=== PATIENT | male | born 1970 | race Caucasian/White ===

== ENCOUNTER 2018-02-26 09:48 | Emergency (ER) | payer OTHER ==
[~2018-02-26] VITALS: Ht 160 cm; Wt 68.0 kg
[~2018-02-26 09:48] MED LIST: LOTRISONE 0.05%1 CRE T; LYRICA50 MG PO; NAPROSYN500 MG PO; NKHM; NORCO 325 MG-51 TAB PO; ROBAXIN750 MG PO; VOLTAREN50 M1 PO; ZOVIRAX800 MG PO
[2018-02-26 10:21] LABS: BILIRUBIN NEGATIVE (NEGATIVE); BLOOD TRACE-LYSED (NEGATIVE); CLARITY SL CLOUDY (CLEAR); COLOR YELLOW (YELLOW); GLUCOSE NEGATIVE (NEGATIVE); KETONE 1+ (NEGATIVE); LEUKO ESTERASE 1+ (NEGATIVE); NITRITE NEGATIVE (NEGATIVE); SPECIFIC GRAVITY 1.025 (1.005-1.030); UROBILINOGEN 0.2 E.U./dl (0.2-1.0)
[2018-02-26 10:32] LABS: BACTERIA TRACE
[2018-02-26] MEDS ORDERED: CIPRO500 MG PO (11:55)
[2018-02-26] MEDS ORDERED: NORCO 10-325 T1 EACH PO (12:08)
== END 2018-02-26 12:24 | disposition home or self-care (01) ==
LOC: ED 09:48
PROVIDERS: Emergency Medicine
DX: N45.2 Orchitis (principal); N50.89 Other specified disorders of the male genital organs; Z88.6 Allergy status to analgesic agent

== ENCOUNTER 2018-03-22 01:35 | Emergency (ER) | payer OTHER ==
[~2018-03-22] VITALS: Ht 165.1 cm; Wt 63.5 kg
[~2018-03-22 01:35] MED LIST changes: +CIPRO500 MG PO; +NORCO 10-325 T1 EACH PO
[2018-03-22] MEDS ORDERED: 'CIPRO500 M1 PO (01:39)
[2018-03-22 02:39] LABS: BASO # 0.1 10*3/uL (0.0-0.1); EOS # 0.2 10*3/uL (0.0-0.4); EOS % 2.1 % (1.0-4.0); HEMATOCRIT 44.1 % (42.0-52.0); HEMOGLOBIN 14.1 g/dl (14.0-18.0); LYMPH # 2.4 10*3/uL (1.3-4.4); LYMPH % 34.6 % (27.0-41.0); MEAN CELL VOLUME 98.2 fl (80.0-94.0); MEAN CORPUSCULAR HGB 31.4 pg (27.0-31.0); MEAN PLATELET VOLUME 10.6 fl (9.6-12.3); MONO # 0.4 10*3/uL (0.1-1.0); MONO % 5.6 % (3.0-9.0); NEUT # 3.9 10*3/uL (2.3-7.9); NEUT % 56.4 % (47.0-73.0); PLATELET COUNT AUTOMATED 281 10*3/uL (130-400); RED BLOOD COUNT 4.49 10*6/uL (4.50-5.90); RED CELL DISTRI WIDTH 13.4 % (0-14.5)
[2018-03-22 03:11] LABS: ALBUMIN 3.7 gm/dl (3.1-4.5); ALKALINE PHOSPHATASE 74 U/L (45-117); BUN 5 mg/dl (7-24); CHLORIDE 107 mmol/L (98-107); CREATININE 0.82 mg/dL (0.70-1.30); SGOT/AST 23 IU/L (3-35); SGPT/ALT 16 U/L (12-78); SODIUM 141 mmol/L (136-145); TOTAL PROTEIN 7.6 gm/dL (6.4-8.2)
[2018-03-22 03:42] LABS: BILIRUBIN NEGATIVE (NEGATIVE); BLOOD NEGATIVE (NEGATIVE); CLARITY CLEAR (CLEAR); COLOR YELLOW (YELLOW); GLUCOSE NEGATIVE (NEGATIVE); KETONE NEGATIVE (NEGATIVE); LEUKO ESTERASE NEGATIVE (NEGATIVE); NITRITE NEGATIVE (NEGATIVE); SPECIFIC GRAVITY 1.025 (1.005-1.030); UROBILINOGEN 0.2 E.U./dl (0.2-1.0)
[2018-03-22 03:50] LABS: EPITHELIAL CELLS 0-5
[2018-03-22] MEDS ORDERED: NORCO 5-325 TA1 EACH PO (05:14)
[2018-03-22] MEDS ORDERED: CIPRO500 MG PO (05:14)
== END 2018-03-22 05:07 | disposition home or self-care (01) ==
LOC: ED 01:35
PROVIDERS: Emergency Medicine Emergency Medical Services
DX: N45.2 Orchitis (principal); Z79.899 Other long term (current) drug therapy; Z88.6 Allergy status to analgesic agent

== ENCOUNTER → 2018-05-07 | Outpatient (CLI) | payer OTHER ==
[~2018-05-07] MED LIST changes: +'CIPRO500 M1 PO; +NORCO 5-325 TA1 EACH PO
[2018-05-07 08:52] LABS: ALBUMIN 3.7 gm/dl (3.1-4.5); ALKALINE PHOSPHATASE 72 U/L (45-117); BUN 16 mg/dl (7-24); CHLORIDE 106 mmol/L (98-107); CREATININE 1.09 mg/dL (0.70-1.30); LDH 112 U/L (87-241); PHOSPHOROUS 4.6 mg/dL (2.5-4.9); POTASSIUM 4.2 mmol/L (3.5-5.1); SGOT/AST 20 IU/L (3-35); SGPT/ALT 25 U/L (12-78); SODIUM 142 mmol/L (136-145)
[2018-05-07 09:20] LABS: BASO # 0.1 10*3/uL (0.0-0.1); BASO % 0.7 % (0.0-1.0); EOS # 0.3 10*3/uL (0.0-0.4); EOS % 2.3 % (1.0-4.0); HEMATOCRIT 43.6 % (42.0-52.0); HEMOGLOBIN 13.7 g/dl (14.0-18.0); LYMPH # 2.7 10*3/uL (1.3-4.4); LYMPH % 24.8 % (27.0-41.0); MEAN CELL VOLUME 98.9 fl (80.0-94.0); MEAN CORPUSCULAR HGB 31.1 pg (27.0-31.0); MEAN CORPUSCULAR HGB CONC 31.4 g/dl (33.0-37.0); MEAN PLATELET VOLUME 10.9 fl (9.6-12.3); MONO # 0.7 10*3/uL (0.1-1.0); MONO % 6.6 % (3.0-9.0); NEUT % 65.2 % (47.0-73.0); PLATELET COUNT AUTOMATED 244 10*3/uL (130-400); RED BLOOD COUNT 4.41 10*6/uL (4.50-5.90); RED CELL DISTRI WIDTH 13.4 % (0-14.5); WHITE BLOOD COUNT 10.7 10*3/uL (4.8-10.8)
== END ==
LOC: LAB 08:04
PROVIDERS: Internal Medicine Hematology & Oncology
DX: C62.12 Malignant neoplasm of descended left testis (principal); R97.8 Other abnormal tumor markers

== ENCOUNTER → 2018-05-08 | Outpatient (CLI) | payer OTHER | END | disposition home or self-care (01) | LOC: CT 05-02 14:00 → MRI 01:55 | DX: C62.12 Malignant neoplasm of descended left testis (principal); R97.8 Other abnormal tumor markers ==

== ENCOUNTER → 2018-08-08 | Outpatient (CLI) | payer OTHER | END | disposition home or self-care (01) | LOC: CT 08-01 15:00 | DX: R10.32 Left lower quadrant pain (principal); R11.2 Nausea with vomiting, unspecified; M51.46 Schmorl's nodes, lumbar region; Z85.47 Personal history of malignant neoplasm of testis ==

== ENCOUNTER → 2018-08-12 | Outpatient (CLI) | payer OTHER ==
[2018-08-12 10:10] LABS: BASO # 0.1 10*3/uL (0.0-0.1); BASO % 1.1 % (0.0-1.0); EOS % 0.2 % (1.0-4.0); HEMATOCRIT 35.4 % (42.0-52.0); HEMOGLOBIN 11.7 g/dl (14.0-18.0); LYMPH # 1.7 10*3/uL (1.3-4.4); LYMPH % 36.3 % (27.0-41.0); MEAN CELL VOLUME 99.4 fl (80.0-94.0); MEAN CORPUSCULAR HGB 32.9 pg (27.0-31.0); MEAN CORPUSCULAR HGB CONC 33.1 g/dl (33.0-37.0); MONO # 0.4 10*3/uL (0.1-1.0); MONO % 9.2 % (3.0-9.0); NEUT # 2.4 10*3/uL (2.3-7.9); NEUT % 53.2 % (47.0-73.0); PLATELET COUNT AUTOMATED 191 10*3/uL (130-400); RED BLOOD COUNT 3.56 10*6/uL (4.50-5.90); RED CELL DISTRI WIDTH 16.2 % (0-14.5); WHITE BLOOD COUNT 4.6 10*3/uL (4.8-10.8)
[2018-08-12 10:12] LABS: ALBUMIN 3.4 gm/dl (3.1-4.5); ALKALINE PHOSPHATASE 65 U/L (45-117); BUN 12 mg/dl (7-24); CHLORIDE 107 mmol/L (98-107); LDH 137 U/L (87-241); POTASSIUM 4.1 mmol/L (3.5-5.1); SGOT/AST 9 IU/L (3-35); SGPT/ALT 17 U/L (12-78); SODIUM 136 mmol/L (136-145); TOTAL PROTEIN 6.8 gm/dL (6.4-8.2); URIC ACID 4.9 mg/dL (3.5-7.2)
== END | disposition home or self-care (01) ==
LOC: LAB 09:29
DX: C62.12 Malignant neoplasm of descended left testis (principal); R97.1 Elevated cancer antigen 125 [CA 125]

== ENCOUNTER → 2018-08-21 | Outpatient (CLI) | payer OTHER ==
[2018-08-21 15:53] LABS: BASO % 0.4 % (0.0-1.0); EOS % 0.4 % (1.0-4.0); HEMATOCRIT 36.1 % (42.0-52.0); HEMOGLOBIN 12.2 g/dl (14.0-18.0); LYMPH # 2.1 10*3/uL (1.3-4.4); MEAN CELL VOLUME 100.6 fl (80.0-94.0); MEAN CORPUSCULAR HGB CONC 33.8 g/dl (33.0-37.0); MEAN PLATELET VOLUME 9.3 fl (9.6-12.3); MONO # 0.6 10*3/uL (0.1-1.0); MONO % 11.1 % (3.0-9.0); NEUT # 2.3 10*3/uL (2.3-7.9); NEUT % 46.3 % (47.0-73.0); PLATELET COUNT AUTOMATED 239 10*3/uL (130-400); RED BLOOD COUNT 3.59 10*6/uL (4.50-5.90); RED CELL DISTRI WIDTH 17.3 % (0-14.5); WHITE BLOOD COUNT 5.1 10*3/uL (4.8-10.8)
[2018-08-21 16:17] LABS: ALBUMIN 3.7 gm/dl (3.1-4.5); ALKALINE PHOSPHATASE 73 U/L (45-117); BUN 10 mg/dl (7-24); CREATININE 1.02 mg/dL (0.70-1.30); LDH 156 U/L (87-241); PHOSPHOROUS 3.7 mg/dL (2.5-4.9); SGOT/AST 14 IU/L (3-35); SGPT/ALT 20 U/L (12-78); URIC ACID 5.6 mg/dL (3.5-7.2)
[2018-08-21 16:24] LABS: CHLORIDE 105 mmol/L (98-107); POTASSIUM 4.2 mmol/L (3.5-5.1); SODIUM 138 mmol/L (136-145)
== END | disposition home or self-care (01) ==
LOC: LAB 15:31
PROVIDERS: Internal Medicine Hematology & Oncology
DX: C62.12 Malignant neoplasm of descended left testis (principal); R97.1 Elevated cancer antigen 125 [CA 125]

== ENCOUNTER → 2018-11-20 | Outpatient (CLI) | payer OTHER | END | disposition home or self-care (01) | LOC: LAB 12:40 → RAD 12:40 | DX: Z51.81 Encounter for therapeutic drug level monitoring (principal); C62.12 Malignant neoplasm of descended left testis ==

== ENCOUNTER → 2018-12-17 | Outpatient (CLI) | payer OTHER ==
[2018-12-17 14:32] LABS: BASO # 0.1 10*3/uL (0.0-0.1); BASO % 0.8 % (0.0-1.0); EOS # 0.1 10*3/uL (0.0-0.4); EOS % 1.8 % (1.0-4.0); HEMATOCRIT 44.2 % (42.0-52.0); HEMOGLOBIN 13.8 g/dl (14.0-18.0); LYMPH # 1.8 10*3/uL (1.3-4.4); LYMPH % 28.1 % (27.0-41.0); MEAN CORPUSCULAR HGB 31.2 pg (27.0-31.0); MEAN CORPUSCULAR HGB CONC 31.2 g/dl (33.0-37.0); MEAN PLATELET VOLUME 10.5 fl (9.6-12.3); MONO # 0.3 10*3/uL (0.1-1.0); MONO % 5.1 % (3.0-9.0); NEUT % 63.9 % (47.0-73.0); PLATELET COUNT AUTOMATED 236 10*3/uL (130-400); RED BLOOD COUNT 4.42 10*6/uL (4.50-5.90); RED CELL DISTRI WIDTH 13.4 % (0-14.5); WHITE BLOOD COUNT 6.3 10*3/uL (4.8-10.8)
[2018-12-17 15:01] LABS: ALBUMIN 3.3 gm/dl (3.1-4.5); ALKALINE PHOSPHATASE 82 U/L (45-117); BUN 13 mg/dl (7-24); CHLORIDE 106 mmol/L (98-107); CREATININE 1.02 mg/dL (0.70-1.30); LDH 111 U/L (87-241); POTASSIUM 4.2 mmol/L (3.5-5.1); SGOT/AST 13 IU/L (3-35); SGPT/ALT 23 U/L (12-78); SODIUM 139 mmol/L (136-145); TOTAL PROTEIN 7.2 gm/dL (6.4-8.2)
[2018-12-17 15:12] LABS: BETA-HCG, TUMOR MARKER < 1.0 mIU/mL (<1)
== END | disposition home or self-care (01) ==
LOC: LAB 13:55
PROVIDERS: Urology
DX: C62.90 Malignant neoplasm of unspecified testis, unspecified whether descended or undescended (principal); R31.9 Hematuria, unspecified

== ENCOUNTER → 2019-07-14 | Outpatient (CLI) | payer OTHER ==
--- NOTE | ~2019-07-14 | EKG ---
[place], [place] ELECTROCARDIOGRAM REPORT NAME: DIMAS BACA UNIT #: [id number] ROOM: DOCTOR: EPIPHANY DRAFT REPORT BIRTHDATE: [birth year] [facility] Test Date: 2019-07-14 Test Time: 14:34:49 Pat Name: DIMAS BACA Department: Room: Gender: Development Lead: RESP : 1970 Requested By: MINH HUTCHINS Order Number: [id number] Reading MD: Griselda Marquez MD Measurements Intervals Sullivan Rate: 63 P: 29 ID: [id number] QRS: 56 QRSD: 81 T: 52 QT: 423 QTc: 434 Interpretive Statements Sinus rhythm Electronically Signed On 07-14-2019 14:47:51 PDT by Griselda Marquez MD CM:EKGRPT:ELECTROCARDIOGRAM REPORT [id number] MINH HOBBS DRAFT REPORT MINH HUTCHINS
[2019-07-14 14:44] LABS: HEMATOCRIT 46.2 % (42.0-52.0); HEMOGLOBIN 14.9 g/dl (14.0-18.0); MEAN CELL VOLUME 100.9 fl (80.0-94.0); MEAN CORPUSCULAR HGB 32.5 pg (27.0-31.0); MEAN CORPUSCULAR HGB CONC 32.3 g/dl (33.0-37.0); MEAN PLATELET VOLUME 10.4 fl (9.6-12.3); RED BLOOD COUNT 4.58 10*6/uL (4.50-5.90); RED CELL DISTRI WIDTH 13.8 % (0-14.5); WHITE BLOOD COUNT 7.8 10*3/uL (4.8-10.8)
[2019-07-14 15:18] LABS: CHLORIDE 106 mmol/L (98-107); POTASSIUM 4.6 mmol/L (3.5-5.1); SODIUM 140 mmol/L (136-145)
[2019-07-14 15:35] LABS: ALBUMIN 3.9 gm/dl (3.1-4.5); ALKALINE PHOSPHATASE 73 U/L (45-117); BUN 11 mg/dl (7-24); CHOLESTEROL 169 mg/dL (<200); CREATININE 0.87 mg/dL (0.70-1.30); HDL CHOLESTEROL 86 mg/dl (40-60); LDL CHOLESTEROL 74 mg/dL (9-159); SGOT/AST 15 IU/L (3-35); SGPT/ALT 21 U/L (12-78); TOTAL PROTEIN 7.4 gm/dL (6.4-8.2); TRIGLYCERIDES 45 mg/dl (<150); VLDL CHOLESTEROL 9 mg/dL (6-40)
== END | disposition home or self-care (01) ==
LOC: LAB 14:15
PROVIDERS: Registered Nurse Flight
DX: Z13.220 Encounter for screening for lipoid disorders (principal); I10 Essential (primary) hypertension; R07.9 Chest pain, unspecified; F41.9 Anxiety disorder, unspecified

== ENCOUNTER → 2019-08-06 | Outpatient (CLI) | payer OTHER ==
[~2019-08-06] MED LIST changes: +HYDROCHLOROTH12.5 M2 PO; +PAROXETINE HCL10 MG PO; +PROPRANOLOL HYD20 MG PO; +ZESTRIL10 MG PO
== END | disposition home or self-care (01) ==
LOC: US 11:00
DX: R39.11 Hesitancy of micturition (principal); J44.9 Chronic obstructive pulmonary disease, unspecified; R77.2 Abnormality of alphafetoprotein

== ENCOUNTER → 2019-08-07 | Outpatient (CLI) | payer OTHER ==
--- NOTE | 2019-08-07 10:55 | NUR ---
INFORMED CONSENT OBTAINED FOR A CARDIOLITE STRESS TEST WITH DR. MULLER. RESTING EKG NSR WITH A HT RT OF 68, AND BP OF 132/78 IN SUPINE POSITION. AND A HT RT OF 81 AND BP OF 110/78 IN THE STANDING POSITION. PT COMPLETED 8:00 MINUTES OF A PEACE PROTOCOL WITH COMPLETION OF 2 MINUTES INTO STAGE III AT 3.4 MPH AND 14% GRADE. REACHED A PEAK HT RT OF 158 WHICH IS 91% OF PREDICTED MAX WITH A PEAK BP OF 138/80. TEST TERMINATED DUE TO FATIGUE. DENIES CHEST PAIN AT THE START OF TESTING. HOWEVER VOICED CHEST PRESSURE 8/10 AT TIME OF ASSESSMENT. HAS AN AVERAGE ECERCISE TOLERANCE. LAST RECOVERY HT RT OF 114, WITH A BP OF 110/80. TAKEN TO NUCLEAR IMAGING IN STABLE CONDITION.
== END | disposition home or self-care (01) ==
LOC: CARD 01:41
DX: I10 Essential (primary) hypertension (principal); F41.9 Anxiety disorder, unspecified; I20.0 Unstable angina; R53.83 Other fatigue; R06.09 Other forms of dyspnea; Z82.49 Family history of ischemic heart disease and other diseases of the circulatory system; Z72.0 Tobacco use

== ENCOUNTER → 2020-09-24 | Outpatient (CLI) | payer OTHER | END | disposition home or self-care (01) | LOC: COVID19 12:59 | PROVIDERS: ATTEND Internal Medicine | DX: Z20.828 Contact with and (suspected) exposure to other viral communicable diseases (principal); Z95.828 Presence of other vascular implants and grafts ==

== ENCOUNTER → 2021-02-21 | Outpatient (CLI) | payer OTHER | END | disposition home or self-care (01) | LOC: US 13:46 | PROVIDERS: ATTEND Urology | DX: C62.90 Malignant neoplasm of unspecified testis, unspecified whether descended or undescended (principal); Z90.79 Acquired absence of other genital organ(s) ==

== ENCOUNTER 2021-04-25 13:57 | Inpatient (IN) | payer OTHER ==
[~2021-04-25] VITALS: Ht 177.8 cm; Wt 77.1 kg
[2021-04-25 14:07] VITALS: BP 117/56
[2021-04-25 15:22] LABS: HEMATOCRIT 42.4 % (42.0-52.0); MEAN CELL VOLUME 90.2 fl (80.0-94.0); MEAN CORPUSCULAR HGB 31.7 pg (27.0-31.0); MEAN CORPUSCULAR HGB CONC 35.1 g/dl (33.0-37.0); MEAN PLATELET VOLUME 10.6 fl (9.6-12.3); PLATELET COUNT AUTOMATED 116 10*3/uL (130-400); RED CELL DISTRI WIDTH 12.8 % (0-14.5); WHITE BLOOD COUNT 3.8 10*3/uL (4.8-10.8)
[2021-04-25 15:27] LABS: BILIRUBIN 1+ (Negative); BLOOD Negative (Negative); CLARITY Clear (Clear); COLOR Dark Yellow (Yellow); GLUCOSE Negative (Negative); KETONE 3+ (Negative); LEUKO ESTERASE Negative (Negative); NITRITE Negative (Negative); SPECIFIC GRAVITY 1.025 (1.001-1.030)
[2021-04-25 15:41] LABS: ALBUMIN 3.5 gm/dl (3.1-4.5); ALKALINE PHOSPHATASE 76 U/L (45-117); BUN 10 mg/dl (7-24); CHLORIDE 89 mmol/L (98-107); CREATININE 0.75 mg/dL (0.70-1.30); LIPASE 133 U/L (73-393); POTASSIUM 2.8 mmol/L (3.5-5.1); SGOT/AST 59 IU/L (3-35); SODIUM 124 mmol/L (136-145); TOTAL PROTEIN 7.5 gm/dL (6.4-8.2)
[2021-04-25 15:45] LABS: SGPT/ALT 60 U/L (12-78)
[2021-04-25 15:49] LABS: ATYPICAL LYMPHS 4 % (0-0); PLATELET SUFFICIENCY LOW (NORMAL); TOTAL CELLS COUNTED 100 #CELLS
[2021-04-25 15:50] LABS: VACUOLATION OF NEUTROPHILS MODERATE
[2021-04-25 15:53] LABS: BACTERIA 1+; EPITHELIAL CELLS 0-2
[2021-04-25 15:54] LABS: MUCOUS 2+
[2021-04-25 16:29] VITALS: BP 109/64
[2021-04-25 17:43] VITALS: BP 105/63
[2021-04-25 19:02] VITALS: BP 118/69
[2021-04-25] MEDS ORDERED: METOPROLOL SUCC25 M2 PO (19:50)
[2021-04-25] MEDS ORDERED: OMEPRAZOLE40 MG PO (19:52)
[2021-04-25 23:14] VITALS: BP 107/72
[2021-04-26 04:00] VITALS: BP 108/62
[2021-04-26 04:07] VITALS: BP 108/62
[2021-04-26] MEDS ORDERED: ASPIRIN ADULT L81 M1 PO (04:19)
[2021-04-26] MEDS ORDERED: ISOSORBIDE DINI30 MG PO (04:20)
[2021-04-26 05:09] LABS: ALBUMIN 2.8 gm/dl (3.1-4.5); ALKALINE PHOSPHATASE 69 U/L (45-117); BUN 10 mg/dl (7-24); CHLORIDE 99 mmol/L (98-107); CHOLESTEROL 103 mg/dL (<200); CREATININE 0.67 mg/dL (0.70-1.30); FREE T4 1.18 ng/dl (0.76-1.46); LDL CHOLESTEROL 51 mg/dL (9-159); POTASSIUM 3.4 mmol/L (3.5-5.1); SGOT/AST 41 IU/L (3-35); SGPT/ALT 52 U/L (12-78); SODIUM 132 mmol/L (136-145); TOTAL PROTEIN 6.6 gm/dL (6.4-8.2); TRIGLYCERIDES 104 mg/dl (<150)
[2021-04-26 06:21] LABS: ACT PARTIAL THROMBO TIME 30.3 SECONDS (20.0-32.1); INTERNATIONAL NORM RATIO 1.1 (2.0-3.5)
[2021-04-26 06:21] LABS: HEMATOCRIT 38.8 % (42.0-52.0); MEAN CELL VOLUME 92.2 fl (80.0-94.0); MEAN CORPUSCULAR HGB 32.5 pg (27.0-31.0); MEAN CORPUSCULAR HGB CONC 35.3 g/dl (33.0-37.0); MEAN PLATELET VOLUME 11.4 fl (9.6-12.3); PLATELET COUNT AUTOMATED 126 10*3/uL (130-400); RED BLOOD COUNT 4.21 10*6/uL (4.50-5.90); RED CELL DISTRI WIDTH 12.9 % (0-14.5); WHITE BLOOD COUNT 4.1 10*3/uL (4.8-10.8)
[2021-04-26 06:46] LABS: ATYPICAL LYMPHS 1 % (0-0); TOTAL CELLS COUNTED 100 #CELLS
[2021-04-26 06:51] LABS: BURR CELLS FEW; PLATELET SUFFICIENCY LOW (NORMAL)
[2021-04-26 06:52] LABS: POLYCHROMASIA SLIGHT
[2021-04-26 07:59] LABS: VITAMIN D, 25-HYDROXY 16.7 ng/mL (30-100)
[2021-04-26 08:00] VITALS: BP 105/66
[2021-04-26 12:00] VITALS: BP 106/70
[2021-04-26 16:00] VITALS: BP 101/75
[2021-04-26 20:00] VITALS: BP 109/62
[2021-04-27 00:21] VITALS: BP 121/73
[2021-04-27 05:41] LABS: BUN 8 mg/dl (7-24); CHLORIDE 99 mmol/L (98-107); CREATININE 0.75 mg/dL (0.70-1.30); SODIUM 132 mmol/L (136-145)
[2021-04-27 06:22] LABS: MEAN CELL VOLUME 94.4 fl (80.0-94.0); MEAN CORPUSCULAR HGB CONC 33.8 g/dl (33.0-37.0); MEAN PLATELET VOLUME 11.7 fl (9.6-12.3); PLATELET COUNT AUTOMATED 136 10*3/uL (130-400); RED BLOOD COUNT 4.13 10*6/uL (4.50-5.90); RED CELL DISTRI WIDTH 13.1 % (0-14.5); WHITE BLOOD COUNT 4.9 10*3/uL (4.8-10.8)
[2021-04-27 07:04] LABS: ATYPICAL LYMPHS 4 % (0-0); BASOPHILS 1 % (0-1); PLATELET SUFFICIENCY NORMAL (NORMAL); TOTAL CELLS COUNTED 100 #CELLS
[2021-04-27 07:05] LABS: BURR CELLS FEW; POLYCHROMASIA SLIGHT
[2021-04-27 08:00] VITALS: BP 119/74
[2021-04-27 12:00] VITALS: BP 100/59
[2021-04-27] MEDS ORDERED: VITAMIN D250 MCG PO (12:28)
[2021-04-27] MEDS ORDERED: K-TAB20 MEQ PO (12:30)
== END 2021-04-27 12:51 | disposition home or self-care (01) | DRG 720 ==
LOC: ED 13:57 → 4E 16:57 → EDHOLD 16:57 → 4E 04-26 05:21
PROVIDERS: Internal Medicine; Physician Assistant; Social Worker Clinical; ADMIT Internal Medicine; ATTEND Internal Medicine
DX: A41.9 Sepsis, unspecified organism (principal); E87.1 Hypo-osmolality and hyponatremia; E44.0 Moderate protein-calorie malnutrition; A08.4 Viral intestinal infection, unspecified; E87.6 Hypokalemia; E86.0 Dehydration; D72.819 Decreased white blood cell count, unspecified; E87.8 Other disorders of electrolyte and fluid balance, not elsewhere classified; B37.0 Candidal stomatitis; D69.6 Thrombocytopenia, unspecified; I10 Essential (primary) hypertension; I20.8 Other forms of angina pectoris; K21.9 Gastro-esophageal reflux disease without esophagitis; R80.9 Proteinuria, unspecified; R82.4 Acetonuria; R73.9 Hyperglycemia, unspecified; R74.01 Elevation of levels of liver transaminase levels; Z88.6 Allergy status to analgesic agent; Z82.49 Family history of ischemic heart disease and other diseases of the circulatory system; Z68.24 Body mass index [BMI] 24.0-24.9, adult

== ENCOUNTER 2021-05-19 23:22 | Inpatient (IN) | payer OTHER ==
[~2021-05-19] VITALS: Ht 170.1 cm; Wt 75.4 kg
[~2021-05-19 23:22] MED LIST changes: +ASPIRIN ADULT L81 M1 PO; +IMDUR SA30 MG PO; +K-TAB20 MEQ PO; +METOPROLOL SUCC25 M2 PO; +OMEPRAZOLE40 MG PO; +VITAMIN D250 MCG PO
[2021-05-19 23:31] VITALS: BP 123/85
[2021-05-20] VITALS (7 sets, daily range): BP systolic 128–146; BP diastolic 71–83
[2021-05-20 00:07] LABS: BASO # 0.1 10*3/uL (0.0-0.1); BASO % 0.5 % (0.0-1.0); EOS # 0.1 10*3/uL (0.0-0.4); EOS % 0.7 % (1.0-4.0); HEMATOCRIT 42.2 % (42.0-52.0); LYMPH # 3.3 10*3/uL (1.3-4.4); MEAN CELL VOLUME 96.3 fl (80.0-94.0); MEAN CORPUSCULAR HGB 31.7 pg (27.0-31.0); MEAN CORPUSCULAR HGB CONC 32.9 g/dl (33.0-37.0); MEAN PLATELET VOLUME 9.9 fl (9.6-12.3); MONO # 0.7 10*3/uL (0.1-1.0); MONO % 6.8 % (3.0-9.0); NEUT # 5.5 10*3/uL (2.3-7.9); NEUT % 57.7 % (47.0-73.0); PLATELET COUNT AUTOMATED 262 10*3/uL (130-400); RED BLOOD COUNT 4.38 10*6/uL (4.50-5.90); RED CELL DISTRI WIDTH 13.9 % (0-14.5); WHITE BLOOD COUNT 9.6 10*3/uL (4.8-10.8)
[2021-05-20 00:33] LABS: ALBUMIN 3.9 gm/dl (3.1-4.5); ALKALINE PHOSPHATASE 84 U/L (45-117); BUN 7 mg/dl (7-24); CHLORIDE 94 mmol/L (98-107); CREATININE 0.72 mg/dL (0.70-1.30); LIPASE 163 U/L (73-393); POTASSIUM 3.7 mmol/L (3.5-5.1); SGOT/AST 25 IU/L (3-35); SGPT/ALT 24 U/L (12-78); SODIUM 127 mmol/L (136-145); TOTAL PROTEIN 7.8 gm/dL (6.4-8.2)
[2021-05-20 00:38] LABS: TROPONIN I < 0.015 ng/ml (<0.045)
[2021-05-20 01:05] LABS: BILIRUBIN Negative (Negative); BLOOD Negative (Negative); CLARITY Clear (Clear); COLOR Yellow (Yellow); GLUCOSE Negative (Negative); KETONE Negative (Negative); LEUKO ESTERASE 1+ (Negative); NITRITE Negative (Negative); PH 7.5 (4.5-8.0); SPECIFIC GRAVITY <= 1.005 (1.001-1.030)
[2021-05-20 01:18] LABS: RBC 0-2 rbc/hpf (0-2)
[2021-05-20 01:19] LABS: BACTERIA TRACE
[2021-05-20 06:38] LABS: BASO % 0.6 % (0.0-1.0); EOS # 0.1 10*3/uL (0.0-0.4); EOS % 1.2 % (1.0-4.0); HEMATOCRIT 40.2 % (42.0-52.0); LYMPH % 41.8 % (27.0-41.0); MEAN CORPUSCULAR HGB 31.7 pg (27.0-31.0); MEAN CORPUSCULAR HGB CONC 32.3 g/dl (33.0-37.0); MEAN PLATELET VOLUME 10.3 fl (9.6-12.3); MONO # 0.5 10*3/uL (0.1-1.0); MONO % 6.8 % (3.0-9.0); NEUT # 3.6 10*3/uL (2.3-7.9); NEUT % 49.3 % (47.0-73.0); PLATELET COUNT AUTOMATED 243 10*3/uL (130-400); RED CELL DISTRI WIDTH 14.1 % (0-14.5); WHITE BLOOD COUNT 7.2 10*3/uL (4.8-10.8)
[2021-05-20 06:43] LABS: ALBUMIN 3.6 gm/dl (3.1-4.5); CHLORIDE 104 mmol/L (98-107); POTASSIUM 4.1 mmol/L (3.5-5.1); SODIUM 134 mmol/L (136-145)
[2021-05-20 06:49] LABS: ALKALINE PHOSPHATASE 73 U/L (45-117); BUN 6 mg/dl (7-24); CREATININE 0.62 mg/dL (0.70-1.30); SGOT/AST 17 IU/L (3-35); SGPT/ALT 19 U/L (12-78)
[2021-05-20 07:13] LABS: ACT PARTIAL THROMBO TIME 29.1 SECONDS (20.0-32.1)
[2021-05-20] MEDS ORDERED: VITAMIN D350 MCG PO (13:30)
[2021-05-20] MEDS ORDERED: PRAZOSIN HCL1 MG PO (13:30)
[2021-05-21] VITALS: BP 151/87
[2021-05-21 06:07] LABS: BUN 8 mg/dl (7-24); CHLORIDE 105 mmol/L (98-107); CREATININE 0.78 mg/dL (0.70-1.30); SODIUM 137 mmol/L (136-145)
[2021-05-21 06:30] LABS: BASO # 0.1 10*3/uL (0.0-0.1); BASO % 0.6 % (0.0-1.0); EOS # 0.1 10*3/uL (0.0-0.4); EOS % 1.7 % (1.0-4.0); HEMATOCRIT 42.6 % (42.0-52.0); LYMPH # 2.8 10*3/uL (1.3-4.4); LYMPH % 34.8 % (27.0-41.0); MEAN CELL VOLUME 100.7 fl (80.0-94.0); MEAN CORPUSCULAR HGB 32.2 pg (27.0-31.0); MEAN CORPUSCULAR HGB CONC 31.9 g/dl (33.0-37.0); MEAN PLATELET VOLUME 10.9 fl (9.6-12.3); MONO # 0.6 10*3/uL (0.1-1.0); NEUT # 4.5 10*3/uL (2.3-7.9); NEUT % 55.5 % (47.0-73.0); PLATELET COUNT AUTOMATED 244 10*3/uL (130-400); RED BLOOD COUNT 4.23 10*6/uL (4.50-5.90); WHITE BLOOD COUNT 8.2 10*3/uL (4.8-10.8)
[2021-05-21 08:00] VITALS: BP 151/91
[2021-05-21 11:30] VITALS: BP 150/78
[2021-05-21 16:00] VITALS: BP 131/90
[2021-05-21 20:00] VITALS: BP 151/93
[2021-05-22] VITALS: BP 131/87
[2021-05-22 06:06] LABS: BASO # 0.1 10*3/uL (0.0-0.1); BASO % 0.9 % (0.0-1.0); EOS # 0.2 10*3/uL (0.0-0.4); EOS % 2.3 % (1.0-4.0); HEMATOCRIT 44.1 % (42.0-52.0); LYMPH % 42.7 % (27.0-41.0); MEAN CELL VOLUME 101.4 fl (80.0-94.0); MEAN CORPUSCULAR HGB 32.2 pg (27.0-31.0); MEAN CORPUSCULAR HGB CONC 31.7 g/dl (33.0-37.0); MEAN PLATELET VOLUME 10.7 fl (9.6-12.3); MONO # 0.5 10*3/uL (0.1-1.0); MONO % 7.5 % (3.0-9.0); NEUT # 3.2 10*3/uL (2.3-7.9); NEUT % 46.3 % (47.0-73.0); PLATELET COUNT AUTOMATED 231 10*3/uL (130-400); RED BLOOD COUNT 4.35 10*6/uL (4.50-5.90); RED CELL DISTRI WIDTH 13.8 % (0-14.5); WHITE BLOOD COUNT 6.9 10*3/uL (4.8-10.8)
[2021-05-22 06:25] LABS: BUN 11 mg/dl (7-24); CHLORIDE 105 mmol/L (98-107); CREATININE 0.81 mg/dL (0.70-1.30); POTASSIUM 4.2 mmol/L (3.5-5.1); SODIUM 137 mmol/L (136-145)
[2021-05-22 08:00] VITALS: BP 118/84
[2021-05-22 12:00] VITALS: BP 154/85
[2021-05-22 16:00] VITALS: BP 111/84
[2021-05-22 20:00] VITALS: BP 126/93
[2021-05-23] VITALS (7 sets, daily range): BP systolic 122–156; BP diastolic 75–92
[2021-05-23] MEDS ORDERED: Carafate1 GM PO (13:15)
[2021-05-23] MEDS ORDERED: OMEPRAZOLE40 MG PO (13:15)
== END 2021-05-23 14:14 | disposition home or self-care (01) | DRG 243 ==
LOC: ED 23:22 → EDHOLD 05-20 02:45 → 4E 05-20 02:45 → EDHOLD 05-20 03:39 → 4E 05-20 07:21
PROVIDERS: Emergency Medicine; Hospitalist; Student in an Organized Health Care Education/Training Program; ADMIT Internal Medicine; ATTEND Internal Medicine
PROC: 0DB68ZX Excision of Stomach, Via Natural or Artificial Opening Endoscopic, Diagnostic (ICD-10-PCS; principal; 2021-05-23)
DX: K21.00 Gastro-esophageal reflux disease with esophagitis, without bleeding (principal); K29.70 Gastritis, unspecified, without bleeding; E87.1 Hypo-osmolality and hyponatremia; D53.9 Nutritional anemia, unspecified; I25.10 Atherosclerotic heart disease of native coronary artery without angina pectoris; K44.9 Diaphragmatic hernia without obstruction or gangrene; K29.80 Duodenitis without bleeding; R73.9 Hyperglycemia, unspecified; F17.210 Nicotine dependence, cigarettes, uncomplicated; F41.9 Anxiety disorder, unspecified; F12.90 Cannabis use, unspecified, uncomplicated; I10 Essential (primary) hypertension; Z71.6 Tobacco abuse counseling; Z20.822 Contact with and (suspected) exposure to COVID-19; Z88.6 Allergy status to analgesic agent; Z79.82 Long term (current) use of aspirin; Z79.899 Other long term (current) drug therapy

== ENCOUNTER 2022-03-19 00:03 | Emergency (ER) | payer OTHER ==
[~2022-03-19 00:03] MED LIST changes: +Carafate1 GM PO; +PRAZOSIN HCL1 MG PO; +VITAMIN D350 MCG PO
[2022-03-19] MEDS ORDERED: METHOCARBAMOL500 M1 PO (01:54)
[2022-03-19] MEDS ORDERED: PREDNISONE20 M1 PO (01:54)
== END 2022-03-19 02:14 | disposition home or self-care (01) ==
LOC: ED 00:03
DX: M54.50 Low back pain, unspecified (principal); M79.605 Pain in left leg; Z88.6 Allergy status to analgesic agent; Z79.899 Other long term (current) drug therapy; Z79.82 Long term (current) use of aspirin; F17.210 Nicotine dependence, cigarettes, uncomplicated; W18.39XA Other fall on same level, initial encounter; Y93.89 Activity, other specified; Y92.89 Other specified places as the place of occurrence of the external cause; Y99.8 Other external cause status

== ENCOUNTER 2022-06-13 19:13 | Emergency (ER) | payer OTHER ==
[~2022-06-13] VITALS: Ht 172.7 cm; Wt 77.1 kg
[~2022-06-13 19:13] MED LIST changes: +METHOCARBAMOL500 M1 PO; +PREDNISONE20 M1 PO
[2022-06-13] MEDS ORDERED: TRAZODONE50 MG PO (19:57)
[2022-06-13] MEDS ORDERED: PAROXETINE40 MG PO (19:58)
[2022-06-13] MEDS ORDERED: HYDROXYZINE PAM MC (19:58)
[2022-06-13 20:18] LABS: BILIRUBIN Negative (Negative); BLOOD Negative (Negative); CLARITY Clear (Clear); COLOR Yellow (Yellow); GLUCOSE Negative (Negative); KETONE Trace (Negative); LEUKO ESTERASE 2+ (Negative); NITRITE Negative (Negative); PH 7.5 (4.5-8.0)
[2022-06-13 20:34] LABS: BACTERIA 1+; MUCOUS 1+; WBC 21-30 wbc/hpf (0-5)
[2022-06-13 20:39] LABS: BASO # 0.1 10*3/uL (0.0-0.1); BASO % 0.6 % (0.0-1.0); EOS # 0.1 10*3/uL (0.0-0.4); EOS % 1.2 % (1.0-4.0); HEMATOCRIT 48.6 % (42.0-52.0); LYMPH # 2.3 10*3/uL (1.3-4.4); LYMPH % 25.8 % (27.0-41.0); MEAN CELL VOLUME 96.6 fl (80.0-94.0); MEAN CORPUSCULAR HGB 32.2 pg (27.0-31.0); MEAN CORPUSCULAR HGB CONC 33.3 g/dl (33.0-37.0); MEAN PLATELET VOLUME 10.4 fl (9.6-12.3); MONO # 0.5 10*3/uL (0.1-1.0); NEUT # 5.8 10*3/uL (2.3-7.9); NEUT % 66.1 % (47.0-73.0); PLATELET COUNT AUTOMATED 296 10*3/uL (130-400); RED BLOOD COUNT 5.03 10*6/uL (4.50-5.90); RED CELL DISTRI WIDTH 13.7 % (0-14.5); WHITE BLOOD COUNT 8.8 10*3/uL (4.8-10.8)
[2022-06-13 20:57] LABS: ALKALINE PHOSPHATASE 104 U/L (45-117); BUN 9 mg/dl (7-24); CHLORIDE 107 mmol/L (98-107); CREATININE 0.89 mg/dL (0.70-1.30); POTASSIUM 4.4 mmol/L (3.5-5.1); SGOT/AST 16 IU/L (3-35); SGPT/ALT 26 U/L (12-78); SODIUM 138 mmol/L (136-145); TOTAL PROTEIN 7.8 gm/dL (6.4-8.2)
[2022-06-13] MEDS ORDERED: OMNICEF300 MG PO (23:38)
== END 2022-06-13 23:49 | disposition home or self-care (01) ==
LOC: ED 19:13
PROVIDERS: Emergency Medicine
DX: N39.0 Urinary tract infection, site not specified (principal); I25.10 Atherosclerotic heart disease of native coronary artery without angina pectoris; K21.9 Gastro-esophageal reflux disease without esophagitis; I10 Essential (primary) hypertension; Z88.0 Allergy status to penicillin; Z88.6 Allergy status to analgesic agent; Z79.899 Other long term (current) drug therapy; Z79.82 Long term (current) use of aspirin; Z87.891 Personal history of nicotine dependence

== ENCOUNTER 2023-03-26 19:34 | Emergency (ER) | payer MEDICAID ==
[~2023-03-26] VITALS: Ht 177.8 cm; Wt 104.3 kg
[~2023-03-26 19:34] MED LIST changes: +HYDROXYZINE PAM MC; +OMNICEF300 MG PO; +PAROXETINE40 MG PO; +TRAZODONE50 MG PO
[2023-03-26 20:14] LABS: BASO # 0.1 10*3/uL (0.0-0.1); BASO % 0.4 % (0.0-1.0); EOS # 0.1 10*3/uL (0.0-0.4); EOS % 0.9 % (1.0-4.0); HEMATOCRIT 41.8 % (42.0-52.0); LYMPH % 26.6 % (27.0-41.0); MEAN CELL VOLUME 95.9 fl (80.0-94.0); MEAN CORPUSCULAR HGB 32.3 pg (27.0-31.0); MEAN CORPUSCULAR HGB CONC 33.7 g/dl (33.0-37.0); MEAN PLATELET VOLUME 10.1 fl (9.6-12.3); MONO # 0.7 10*3/uL (0.1-1.0); MONO % 6.2 % (3.0-9.0); NEUT # 7.5 10*3/uL (2.3-7.9); NEUT % 65.6 % (47.0-73.0); PLATELET COUNT AUTOMATED 275 10*3/uL (130-400); RED BLOOD COUNT 4.36 10*6/uL (4.50-5.90); RED CELL DISTRI WIDTH 13.4 % (0-14.5); WHITE BLOOD COUNT 11.4 10*3/uL (4.8-10.8)
[2023-03-26 20:37] LABS: ALKALINE PHOSPHATASE 83 U/L (46-116); BUN 7 mg/dl (9-23); CHLORIDE 101 mmol/L (98-107); POTASSIUM 3.8 mmol/L (3.4-5.1); SGPT/ALT 17 U/L (10-49); TOTAL PROTEIN 7.2 gm/dL (6.0-8.0)
[2023-03-26 20:48] LABS: ACT PARTIAL THROMBO TIME 28.7 SECONDS (20.0-32.1)
[2023-03-26] MEDS ORDERED: FLUONAZOLE200 M1 PO (21:34)
== END 2023-03-26 22:15 | disposition home or self-care (01) ==
LOC: ED 19:34
PROVIDERS: Emergency Medicine
DX: B37.81 Candidal esophagitis (principal); I10 Essential (primary) hypertension; J44.9 Chronic obstructive pulmonary disease, unspecified; Z88.0 Allergy status to penicillin; Z88.6 Allergy status to analgesic agent; Z98.890 Other specified postprocedural states; F17.210 Nicotine dependence, cigarettes, uncomplicated; F12.90 Cannabis use, unspecified, uncomplicated

== ENCOUNTER 2023-04-09 22:43 | Emergency (ER) | payer MEDICAID ==
[~2023-04-09] VITALS: Ht 167.6 cm; Wt 81.6 kg
[~2023-04-09 22:43] MED LIST changes: +FLUONAZOLE200 M1 PO
== END 2023-04-09 23:19 | disposition home or self-care (01) ==
LOC: ED 22:43
DX: B37.81 Candidal esophagitis (principal); R13.10 Dysphagia, unspecified; I10 Essential (primary) hypertension; J44.9 Chronic obstructive pulmonary disease, unspecified; Z88.0 Allergy status to penicillin; Z88.6 Allergy status to analgesic agent; Z98.890 Other specified postprocedural states; F12.90 Cannabis use, unspecified, uncomplicated; F17.210 Nicotine dependence, cigarettes, uncomplicated

== ENCOUNTER 2023-05-27 21:09 | Emergency (ER) | payer MEDICAID ==
[~2023-05-27] VITALS: Ht 177.8 cm; Wt 80.7 kg
[2023-05-27 21:41] LABS: BASO # 0.1 10*3/uL (0.0-0.1); BASO % 0.6 % (0.0-1.0); EOS # 0.1 10*3/uL (0.0-0.4); EOS % 1.4 % (1.0-4.0); HEMATOCRIT 40.4 % (42.0-52.0); LYMPH # 2.6 10*3/uL (1.3-4.4); LYMPH % 29.4 % (27.0-41.0); MEAN CELL VOLUME 94.4 fl (80.0-94.0); MEAN CORPUSCULAR HGB 32.5 pg (27.0-31.0); MEAN CORPUSCULAR HGB CONC 34.4 g/dl (33.0-37.0); MEAN PLATELET VOLUME 9.9 fl (9.6-12.3); MONO # 0.4 10*3/uL (0.1-1.0); MONO % 4.8 % (3.0-9.0); NEUT # 5.6 10*3/uL (2.3-7.9); NEUT % 63.6 % (47.0-73.0); PLATELET COUNT AUTOMATED 281 10*3/uL (130-400); RED BLOOD COUNT 4.28 10*6/uL (4.50-5.90); RED CELL DISTRI WIDTH 13.3 % (0-14.5); WHITE BLOOD COUNT 8.8 10*3/uL (4.8-10.8)
[2023-05-27 21:59] LABS: ALKALINE PHOSPHATASE 77 U/L (46-116); BUN 10 mg/dl (9-23); CHLORIDE 99 mmol/L (98-107); ETHYL ALCOHOL 162.7 mg/dl (<3); LIPASE 33 U/L (12-53); POTASSIUM 3.4 mmol/L (3.4-5.1); SGPT/ALT 51 U/L (10-49); TOTAL PROTEIN 6.8 gm/dL (6.0-8.0)
[2023-05-28] MEDS ORDERED: ONDANSETRON4 MG SL (00:19)
== END 2023-05-28 00:35 | disposition home or self-care (01) ==
LOC: ED 21:09
PROVIDERS: Internal Medicine
DX: F10.90 Alcohol use, unspecified, uncomplicated (principal); R79.89 Other specified abnormal findings of blood chemistry; D53.9 Nutritional anemia, unspecified; R10.84 Generalized abdominal pain; R19.7 Diarrhea, unspecified; F17.210 Nicotine dependence, cigarettes, uncomplicated; Z88.0 Allergy status to penicillin; Z88.6 Allergy status to analgesic agent; Z79.2 Long term (current) use of antibiotics; Z79.899 Other long term (current) drug therapy; Z79.82 Long term (current) use of aspirin; Z85.47 Personal history of malignant neoplasm of testis; Y90.6 Blood alcohol level of 120-199 mg/100 ml